=== PATIENT | male | born 1965 | race African-American/Black ===

== ENCOUNTER 2019-08-02 13:15 | Emergency (ER) | payer OTHER ==
[~2019-08-02] VITALS: Ht 170.2 cm; Wt 90.7 kg
[~2019-08-02 13:15] MED LIST: AEROCHAMBER MI1 EACH MC; DOXYCYCLINE 10100 M1 PO; MEDROLDOSEPACK PO; PROAIR HFA8.5 GM INH
[2019-08-02] MEDS ORDERED: PRINIVIL20 M1 PO (13:23)
[2019-08-02 14:02] LABS: INFLUENZA A ANTIGEN Negative (Negative)
[2019-08-02 14:30] VITALS: BP 169/111
== END 2019-08-02 14:30 | disposition home or self-care (01) ==
LOC: M.ERS 13:15
PROVIDERS: Physician Assistant
DX: J10.1 Influenza due to other identified influenza virus with other respiratory manifestations (principal); I10 Essential (primary) hypertension